=== PATIENT | male | born 1950 | race Caucasian/White ===

== ENCOUNTER 2020-08-25 15:00 | Outpatient (RCR) | payer OTHER, SELFPAY ==
[2020-08-25 14:57] VITALS: BMI 35.6
== END 2020-09-28 09:45 | disposition home or self-care (01) ==
LOC: ANHDMC 15:00
PROVIDERS: PCP Internal Medicine; Visit Provider Physician Assistant
DX: E11.65 Type 2 diabetes mellitus with hyperglycemia (principal); Z71.89 Other specified counseling; Z71.3 Dietary counseling and surveillance
CPT/HCPCS: 97802; G0108; G0109

== ENCOUNTER 2024-06-28 12:52 | Outpatient (CLI) | payer OTHER, SELFPAY ==
--- NOTE | ~2024-06-28 | MR_ITS ---
MR cervical spine wo con Ordering provider: Nicky Borrego, History: 74 years Male with . Myelopathy . Comparison: None. Technique: MRI cervical spine without contrast. FINDINGS: CERVICAL SPINAL CORD/CRANIAL CERVICAL JUNCTION: Normal in signal and caliber. CERVICAL VERTEBRAL BODIES: Normal height and alignment. Normal marrow signal. Fusion at the level of C6-C7. Prominent anterior osteophytes in the mid cervical area. DISK SPACES: Normal. Multilevel facet joint disease. C2-C3: No stenosis. Narrowing of the left intervertebral foramen by facet joint disease. C3-C4: No stenosis. Mild disc bulge. Narrowing of the left intervertebral foramen with root compressi on. C4-C5: No stenosis. Diffuse disc bulge with narrowing of the left intervertebral foramen with root co mpression C5-C6: No stenosis. Diffuse disc bulge. Bilateral narrowing of the foramina with root compression. C6-C7: No stenosis. C7-T1: No stenosis. VISUALIZED PARASPINOUS SOFT TISSUES: Normal. IMPRESSION: 1. Fusion at the level of C6-C7. 2. No acute osseous abnormality. 3. Multilevel disc bulges with variable degrees of intervertebral foraminal narrowing and the root c ompression. 4. Multilevel facet joint disease. Reviewed, dictated and finalized at location A. IMPRESSION: 1. Fusion at the level of C6-C7. 2. No acute osseous abnormality. 3. Multilevel disc bulges with variable degrees of intervertebral foraminal na rrowing and the root compression. 4. Multilevel facet joint disease.
== END 2024-06-28 12:53 ==
LOC: MICIMG 12:53
PROVIDERS: PCP Psychiatry & Neurology Neurology; Visit Provider Psychiatry & Neurology Neurology
DX: G95.9 Disease of spinal cord, unspecified (principal); Z98.1 Arthrodesis status; M50.30 Other cervical disc degeneration, unspecified cervical region
CPT/HCPCS: 72141

== ENCOUNTER 2025-08-06 13:01 | Outpatient (CLI) | payer OTHER, SELFPAY ==
--- NOTE | ~2025-08-06 | MR_ITS ---
EXAMINATION: MR lumbar spine wo con DATE: 08/06/2025 13:31 INDICATION: Low back pain. Bilateral hip pain. TECHNIQUE: Magnetic resonance imaging (MRI) of the lumbar spine was performed without intravenous contrast. Sequences included sagittal T2-weighted FSE, sagittal T2-weighted FS FSE, sagittal T1-weighted FSE, and axial T2-weighted FSE. COMPARISON: None FINDINGS: There is 3 mm anterolisthesis of L4 on L5. Vertebral body heights are normal. There is mildly decreased disc height at L4-L5. The distal spinal cord signal intensity is normal. The conus medullaris is at T12-L1. There is a 2.8 cm hemorrhagic cyst in left kidney. The following disc levels are specifically discussed: L1-L2: The disc is mildly bulging. There is moderate bilateral facet joint osteoarthritis. There is mild bilateral neural foraminal stenosis. There is mild central canal stenosis. L2-L3: The disc is bulging. There is severe bilateral facet joint osteoarthritis. There is mild bilateral neural foraminal stenosis. There is mild central canal stenosis. L3-L4: The disc is bulging. There is severe bilateral facet joint osteoarthritis. There is mild bilateral neural foraminal stenosis. There is mild central canal stenosis. L4-L5: The disc is bulging. There is severe bilateral facet joint osteoarthritis. There is moderate bilateral neural foraminal stenosis. There is mild central canal stenosis. L5-S1: The disc is bulging. There is severe bilateral facet joint osteoarthritis. There is mild bilateral neural foraminal stenosis. There is no central canal stenosis. IMPRESSION: 1. Moderate spondylosis at L4-L5 and mild spondylosis at other levels. Reviewed, dictated and finalized at location E.
== END 2025-08-06 13:02 | disposition home or self-care (01) ==
PROVIDERS: PCP Family Medicine; Visit Provider Family Medicine
DX: M47.816 Spondylosis without myelopathy or radiculopathy, lumbar region (principal); M48.061 Spinal stenosis, lumbar region without neurogenic claudication; M25.551 Pain in right hip; M25.552 Pain in left hip
CPT/HCPCS: 72148